=== PATIENT | female | born 1990 | race Two or more races ===

== ENCOUNTER 2020-07-13 07:17 | Emergency (ER) | payer OTHER ==
[~2020-07-13] VITALS: Ht 154.9 cm; Wt 63.5 kg
[2020-07-13 07:28] VITALS: BP 120/73
--- NOTE | 2020-07-13 07:59 | NUR ---
Patient discharged to home in stable condition. Written and verbal after care instructions given. Patient verbalizes understanding of instruction. Pt ambulatory with a steady gait
== END 2020-07-13 08:04 | disposition home or self-care (01) ==
LOC: ER 07:27
DX: R06.02 Shortness of breath (principal); J45.909 Unspecified asthma, uncomplicated; Z90.89 Acquired absence of other organs